=== PATIENT | male | born 1985 | race Caucasian/White ===

== ENCOUNTER 2016-11-01 18:58 | Emergency (ER) | payer MEDICAID ==
[2016-11-01] MEDS ORDERED: LORazepam 2 MG/ML INJ IVP ONE ×3 (19:34→20:42)
[2016-11-01] MEDS ORDERED: NS 1,000 ML IV ONE ×2 (19:34→20:42)
[2016-11-01] MEDS ORDERED: LORazepam 2 MG/ML INJ ONE ×2 (19:38→20:43)
--- NOTE | 2016-11-01 19:47 | EDPHY ---
HPI/HX/ROS/PE/MDM Narrative: CHIEF COMPLAINT: "I'm having a panic attack related to drugs" HISTORY OF PRESENT ILLNESS: The patient is a 31 y/o male arriving today complaining of anxiety related to drug intake yesterday around 14:00 in [place]. He reports using crystal methamphetamine, CBD, and possible LSD, in addition to wearing a nicotine patch. He denies marijuana, cocaine, or opiate use. He began feeling anxious on the bus ride home and states "I think all the chemicals are adding up in my body." He describes his symptoms as feeling like "someone is attacking my every nerve and trying to move it the wrong way and every time I move there is opposition." He states that he "has a PTSD kind of thing going on" and that his breathing "rhythm is off." He is HIV positive and has history of depression, anxiety, and panic attacks. He denies suicidal ideation. He denies chest pain, dyspnea, recent illness or trauma, dizziness, or syncope as well as immediate family history of cardiac disease at a young age. No fever, chills, vomiting, diarrhea, urinary complaints, headache. REVIEW OF SYSTEMS: Aside from elements discussed in the HPI, a comprehensive 10-point review of systems was reviewed and is negative. PAST MEDICAL HISTORY: HIV positive for 13 years (Triumeq, CD4 count 900, viral load undetectable). Depression, anxiety. SOCIAL HISTORY: History of amphetamine use. Followed at [facility] for HIV. Sees mental health professional in [place]. VITAL SIGNS: Reviewed by me GENERAL: Well-developed, well-nourished, anxious. HEENT: Atraumatic. Eyes: Pupils 6 mm and reactive bilaterally. No icterus, no injection. Mouth: moist mucous membranes. No erythema or lesions. Neck: supple with no adenopathy. LUNGS: Clear to auscultation bilaterally, no wheezes, rhonchi or rales. CARDIAC: Tachycardic. Regular rhythm, no rubs, murmurs or gallops. ABDOMEN: Soft, nontender, nondistended, bowel sounds normal. BACK: No CVA tenderness. EXTREMITIES: No trauma. No edema. Range of motion is normal throughout. NEURO: Alert and oriented, grossly nonfocal. SKIN: Warm and dry, no rash. PSYCHIATRIC: Normal mentation, anxious. Portions of this note were transcribed by a biomedical engineering technician. I personally performed a history, physical exam, medical decision making, and confirmed accuracy of information the transcribed note. ED Course: The patient is a 31 y/o male with history of HIV and illicit drug abuse. He presents with a self described panic attack 24 hours after consuming crystal methamphetamine, CBD, and possible LSD. He is neurovascularly intact. Plan for symptom treatment. IV established. Administered 2L IV NS and a total of 3mg IV Ativan for symptoms with improvement. Reassessed the patient. Tachycardia has resolved and he feels improved enough to go home. The patient will be discharged with Ativan pre-pack. Recommendation to discontinue illicit drug use and follow up with his mental health professional this week. Return precautions discussed. The patient is comfortable with this plan. MDM: Differential diagnoses for the patient's symptom complex was considered including but not limited to sinus tachycardia, anxiety, panic attack, SVT, dehydration. - Data Points Medications Given: Discontinued Medications Sodium Chloride (Ns) 1,000 mls @ 0 mls/hr IV ONCE ONE PRN Reason: Wide Open Stop: 11/01/16 19:35 Last Admin: 11/01/16 19:53 Dose: 1,000 mls Sodium Chloride (Ns) 1,000 mls @ 0 mls/hr IV ONCE ONE PRN Reason: Wide Open Stop: 11/01/16 20:43 Last Admin: 11/01/16 21:02 Dose: 1,000 mls Lorazepam (Ativan Injection) 1 mg IVP EDNOW ONE Stop: 11/01/16 19:35 Last Admin: 11/01/16 19:54 Dose: 1 mg Lorazepam (Ativan Injection) 1 mg IVP EDNOW ONE Stop: 11/01/16 19:54 Last Admin: 11/01/16 19:53 Dose: Not Given Lorazepam (Ativan Injection) 1 mg IVP EDNOW ONE Stop: 11/01/16 20:43 Last Admin: 11/01/16 21:03 Dose: 1 mg Lorazepam (Ativan 1 Mg Prepack#4) 1 btl TAKEHOME EDNOW ONE Stop: 11/01/16 21:14 Last Admin: 11/01/16 21:35 Dose: 1 btl General Time Seen by Provider: 11/01/16 19:00 Initial Vital Signs: Initial Vital Signs Temperature (C) 37 C 11/01/16 19:08 Heart Rate 132 H 11/01/16 19:08 Respiratory Rate 20 11/01/16 19:08 Blood Pressure 133/82 H 11/01/16 19:08 O2 Sat (%) 96 11/01/16 19:08 O2 Delivery Mode Room Air Allergies/Adverse Reactions: lurasidone HCl [From Latuda] Allergy (Verified 11/01/16 19:08) haloperidol [From Haldol] Adverse Reaction (Verified 11/01/16 19:08) haloperidol lactate [From Haldol] Adverse Reaction (Verified 11/01/16 19:08) olanzapine [From Zyprexa] Adverse Reaction (Verified 11/01/16 19:08) promethazine HCl [From Phenergan] Adverse Reaction (Verified 11/01/16 19:08) ziprasidone HCl [From Geodon] Adverse Reaction (Verified 11/01/16 19:08) ziprasidone mesylate [From Geodon] Adverse Reaction (Verified 11/01/16 19:08) Home Medications: Medication Instructions Recorded Invega 01/24/16 Strattera 01/24/16 Triumeq Tablet 01/24/16 Lexapro 03/29/16 Departure - Departure Disposition: Home, Routine, Self-Care Clinical Impression: Methamphetamine abuse, Anxiety attack, Anxiety Condition: Good Instructions: Lorazepam (By mouth), Methamphetamine (By mouth), Methamphetamine Abuse (ED), Anxiety (ED) Additional Instructions: Do not use methamphetamines in the future. You have been given a prepack of Ativan. Please use this only as needed for severe anxiety. Dose is 1 mg every 12 hours as needed. Follow up with your primary psychiatrist at [facility] as soon as possible. Referrals: Eliza Dotson NP [Primary Care Provider] - As per Instructions [facility],. [Clinic] - As per Instructions Report Scribed for: Katelyn Whitney Report Scribed by: Flaquita Tomlin Date of Report: 11/01/16 Time of Report: 21:21
[2016-11-01] MEDS ORDERED: LORAZEPAM 1 MG PREPACK#4 BTL TAKEHOME ONE ×2 (21:13→21:34)
[2016-11-01 22:02] VITALS: BP 118/85; PULSE 90; RESP 16; TEMP 97.5; O2SAT 98
== END 2016-11-01 22:02 | disposition home or self-care (01) ==
DX: F41.9 Anxiety disorder, unspecified (principal); F15.10 Other stimulant abuse, uncomplicated; B20 Human immunodeficiency virus [HIV] disease
CPT/HCPCS: 96374; J2060

== ENCOUNTER 2016-12-02 13:51 | Emergency (ER) | payer MEDICAID ==
[2016-12-02] MEDS ORDERED: LORazepam 2 MG/ML INJ IVP ONE (14:06)
[2016-12-02 14:15] VITALS: RESP 18
--- NOTE | 2016-12-02 14:22 | EDPHY ---
H & P Stated Complaint: anxiety Time Seen by Provider: 12/02/16 13:51 HPI/ROS: CHIEF COMPLAINT: Anxiety HISTORY OF PRESENT ILLNESS: 31-year-old male presents emergency department by ambulance reporting an anxiety attack. Patient has a history of schizoaffective disorder, PTSD, HIV positive and polysubstance abuse. Patient reports he has not used any drugs for a month. He states he did have a glass of wine this morning. Patient saw his psychiatrist yesterday and started new medication fluphenazine. Patient reports having PTSD flashbacks this morning causing him to feel anxious. He called 911. Patient denies chest pain or shortness breath. He reports he drink a glass of wine trying to calm him down. He reports this anxiety attack is no different than usual. Patient received 2.5 mg Versed in the ambulance. REVIEW OF SYSTEMS: A comprehensive 10 point review of systems is otherwise negative aside from elements mentioned in the history of present illness. Source: Patient, Family, EMS Exam Limitations: No limitations - Personal History Current Tetanus/Diphtheria Vaccine: Unsure Tetanus Vaccine Date: < 10 YEARS - Medical/Surgical History Hx Asthma: No Hx Chronic Respiratory Disease: No Hx Diabetes: No Hx Cardiac Disease: No Hx Renal Disease: No Hx Cirrhosis: No Hx Alcoholism: No Hx HIV/AIDS: Yes Hx Splenectomy or Spleen Trauma: No Other PMH: pmh- depression, bipolar, anxiety, HIV+, SCHIZOAFFECTIVE. psh- wisdom, HPV removed from anus. - Social History Smoking Status: Current every day smoker Alcohol Use: Occasionally - Physical Exam Exam: Physical Exam Gen: Alert and Oriented, NAD HEENT: PERRL, moist mucous membranes NECK: no meningismus CV: Tachycardic rate and regular rhythm PULM: CTAB, no wheezes ABDOMEN: soft, non tender to palpation, BS present BACK: No CVA tenderness NEURO: Neurologically grossly intact EXTREMITIES: normal appearing SKIN: no rash or break in skin on exposed skin PSYCH: Flat affect, denies suicidal ideation, auditory and visual hallucinations. Constitutional: Initial Vital Signs Temperature (C) 36.9 C 12/02/16 14:12 Heart Rate 106 H 12/02/16 14:12 Respiratory Rate 18 12/02/16 14:12 Blood Pressure 115/87 H 12/02/16 14:12 O2 Sat (%) 96 12/02/16 14:12 O2 Delivery Mode Room Air Allergies/Adverse Reactions: lurasidone HCl [From Latuda] Allergy (Verified 11/01/16 19:08) haloperidol [From Haldol] Adverse Reaction (Verified 11/01/16 19:08) haloperidol lactate [From Haldol] Adverse Reaction (Verified 11/01/16 19:08) olanzapine [From Zyprexa] Adverse Reaction (Verified 11/01/16 19:08) promethazine HCl [From Phenergan] Adverse Reaction (Verified 11/01/16 19:08) ziprasidone HCl [From Geodon] Adverse Reaction (Verified 11/01/16 19:08) ziprasidone mesylate [From Geodon] Adverse Reaction (Verified 11/01/16 19:08) Home Medications: Medication Instructions Recorded Invega 01/24/16 Strattera 01/24/16 Triumeq Tablet 01/24/16 Lexapro 03/29/16 Medical Decision Making ED Course/Re-evaluation: 31-year-old male presents to the emergency department by ambulance for an anxiety attack. Patient's partner went to work this morning and noticed he was more anxious than usual. In route the patient received 2.5mg of Versed which helped his symptoms. On arrival to the emergency department patient reports he is feeling much better, he denies drug use, reports he drink 1 glass of wine prior to calling 911 to help with anxiety, patient reports this made it worse. Patient's partner came to the emergency department from work and the patient immediately relaxed even more. He will take the patient home. The patient and partner are comfortable with this plan. He has an appointment with his psychiatrist in 2 weeks. I have recommended alcohol cessation and taking his medications as prescribed. Patient is given strict return precautions for any new symptoms, worsening symptoms or concerns. Departure - Departure Disposition: Home, Routine, Self-Care Clinical Impression: Anxiety attack Condition: Good Instructions: Anxiety (ED) Additional Instructions: 1. Please follow-up with your psychiatrist as scheduled. 2. [facility] does operate a 24/ psychiatric crisis unit located at [facility]. The telephone number for the 24 hour crisis center is [phone]. 3. Please return to the ED if you are feeling suicidal, having thoughts of harming yourself/others or should you feel unsafe or have worsening symptoms. Referrals: Patient,NotPresent [Primary Care Provider] - As per Instructions
[2016-12-02 15:05] VITALS: BP 138/90; PULSE 102; TEMP 97.9; O2SAT 98
== END 2016-12-02 15:05 | disposition home or self-care (01) ==
LOC: EDUNIT#
DX: F41.9 Anxiety disorder, unspecified (principal); B20 Human immunodeficiency virus [HIV] disease; F17.200 Nicotine dependence, unspecified, uncomplicated
CPT/HCPCS: 96374; J1200

== ENCOUNTER 2016-12-03 01:15 | Emergency (ER) | payer MEDICAID ==
[2016-12-03 01:24] VITALS: TEMP 98.4
--- NOTE | 2016-12-03 01:38 | EDPHY ---
H & P Stated Complaint: tardive dyskinesia from meds. no recent benadryl HPI/ROS: HPI CHIEF COMPLAINT: Agitation, Breath-Holding HISTORY OF PRESENT ILLNESS: This patient very pleasant 31-year-old male significant past medical history for schizoaffective disorder, PTSD, HIV, polysubstance abuse, anxiety who was seen here earlier in the emergency room for acute anxiety by ambulance and in route by EMS he was received 2.5 mg of IM Versed. According to the note he arrived any was, cooperative was discharged with this partner at bedside. He presents back to the emergency room this evening with his partner for agitation and breath holding. Patient is stating that he needs Ativan and so was his partner at bedside. Upon my evaluation the patient appears slightly agitated at times he does these breath-holding spells and then forcefully speaks. Apartment bedside says that he gets like this however Ativan greatly improved his symptoms. Past Medical History: Schizoaffective disorder, PTSD, HIV, polysubstance abuse , anxiety Past Surgical History: No recent surgical history Social History: Occasional alcohol use, denies illicit drugs or tobacco Family History: Non contributory. ROS REVIEW OF SYSTEMS: A comprehensive 10 point review of systems is otherwise negative aside from elements mentioned in the history of present illness. Exam Constitutional Agitated, anxious, triage nursing summary reviewed, vital signs reviewed, awake/alert. (tachycardia) Eyes normal conjunctivae and sclera, EOMI, PERRLA. HENT normal inspection, atraumatic, moist mucus membranes, no epistaxis, neck supple/ no meningismus, no raccoon eyes. Respiratory clear to auscultation bilaterally, normal breath sounds, no respiratory distress, no wheezing. Cardiovascular rate normal, regular rhythm, no murmur, no edema, distal pulses normal. Gastrointestinal soft, non-tender, no rebound, no guarding, normal bowel sounds, no distension, no pulsatile mass. Genitourinary no CVA tenderness. Musculoskeletal no midline vertebral tenderness, full range of motion, no calf swelling, no tenderness of extremities, no meningismus, good pulses, neurovascularly intact. Skin pink, warm, & dry, no rash, skin atraumatic. Neurologic awake, alert and oriented x 3, AAOx3, moves all 4 extremities equally, motor intact, sensory intact, CN II-XII intact, normal cerebellar, normal vision, normal speech. Psychiatric anxious, agitated Heme/Lymph/Immune no lymphadenopathy. Differential Diagnosis: Includes but is not limited to in a particular order acute anxiety, panic attack, acute agitation, medication side effect. Medical Decision Making: Plan for this patient is tachycardic appears agitated and anxious and IV will be established received IV Ativan 1 mg 25 mg IV Benadryl IV fluid bolus check basic blood work and drug screen. Re-evaluate. Re-evaluation: 0411: Re-evaluation at this time patient is resting comfortably. Feels much better after IV Ativan and IV Benadryl. He is requesting discharge. He is, cooperative. Not agitated. Anxiety resolved. Recommend close follow-up with his primary care doctor or psychiatrist. Return emergency room if there is worsening symptoms questions or concerns. Source: Patient - Personal History Current Tetanus/Diphtheria Vaccine: Yes Current Tetanus Diphtheria and Acellular Pertussis (TDAP): Yes Tetanus Vaccine Date: < 10 YEARS - Medical/Surgical History Hx Asthma: No Hx Chronic Respiratory Disease: No Hx Diabetes: No Hx Cardiac Disease: No Hx Renal Disease: No Hx Cirrhosis: No Hx Alcoholism: No Hx HIV/AIDS: Yes Hx Splenectomy or Spleen Trauma: No Other PMH: pmh- depression, bipolar, anxiety, HIV+, SCHIZOAFFECTIVE. psh- wisdom, HPV removed from anus. - Social History Smoking Status: Current every day smoker Constitutional: Initial Vital Signs Temperature (C) 36.9 C 12/03/16 01:20 Heart Rate 112 H 12/03/16 01:20 Respiratory Rate 18 12/03/16 01:20 Blood Pressure 133/93 H 12/03/16 01:20 O2 Sat (%) 94 12/03/16 01:20 O2 Delivery Mode Room Air Allergies/Adverse Reactions: lurasidone HCl [From Latuda] Allergy (Verified 12/03/16 01:22) haloperidol [From Haldol] Adverse Reaction (Verified 12/03/16 01:22) haloperidol lactate [From Haldol] Adverse Reaction (Verified 12/03/16 01:22) olanzapine [From Zyprexa] Adverse Reaction (Verified 12/03/16 01:22) promethazine HCl [From Phenergan] Adverse Reaction (Verified 12/03/16 01:22) ziprasidone HCl [From Geodon] Adverse Reaction (Verified 12/03/16 01:22) ziprasidone mesylate [From Geodon] Adverse Reaction (Verified 12/03/16 01:22) Home Medications: Medication Instructions Recorded Invega 01/24/16 Strattera 01/24/16 Triumeq Tablet 01/24/16 Lexapro 03/29/16 fluPHENAZine HCL [FLUPHENAZINE HCL] 5 mg PO 12/03/16 Medical Decision Making - Data Points Laboratory Results: Laboratory Results 12/03/16 02:30 12/03/16 02:30 12/03/16 12/03/16 02:30 02:30 WBC 8.02 10^3/uL 10^3/uL (3.80-9.50) RBC 4.40 10^6/uL 10^6/uL (4.40-6.38) Hgb 13.9 g/dL g/dL (13.7-17.5) Hct 39.0 % L % (40.0-51.0) MCV 88.6 fL fL (81.5-99.8) MCH 31.6 pg pg (27.9-34.1) MCHC 35.6 g/dL g/dL (32.4-36.7) RDW 12.3 % % (11.5-15.2) Plt Count 300 10^3/uL 10^3/uL (150-400) MPV 9.2 fL fL (8.7-11.7) Neut % (Auto) 56.4 % % (39.3-74.2) Lymph % (Auto) 32.0 % % (15.0-45.0) [place] % (Auto) 10.2 % % (4.5-13.0) Eos % (Auto) 0.6 % % (0.6-7.6) Baso % (Auto) 0.4 % % (0.3-1.7) Nucleat RBC Rel Count 0.0 % % (0.0-0.2) Absolute Neuts (auto) 4.52 10^3/uL 10^3/uL (1.70-6.50) Absolute Lymphs (auto) 2.57 10^3/uL 10^3/uL (1.00-3.00) Absolute Monos (auto) 0.82 10^3/uL H 10^3/uL (0.30-0.80) Absolute Eos (auto) 0.05 10^3/uL 10^3/uL (0.03-0.40) Absolute Basos (auto) 0.03 10^3/uL 10^3/uL (0.02-0.10) Absolute Nucleated RBC 0.00 10^3/uL 10^3/uL (0-0.01) Immature Gran % 0.4 % % (0.0-1.1) Immature Gran # 0.03 10^3/uL 10^3/uL (0.00-0.10) Sodium 139 mEq/L mEq/L (134-144) Potassium 4.5 mEq/L mEq/L (3.5-5.2) Chloride 105 mEq/L mEq/L (97-110) Carbon Dioxide 20 mEq/l L mEq/l (22-31) Anion Gap 14 mEq/L mEq/L (8-16) BUN 12 mg/dL mg/dL (7-23) Creatinine 1.0 mg/dL mg/dL (0.7-1.3) Estimated GFR > 60 Glucose 108 mg/dL H mg/dL (70-100) Calcium 9.8 mg/dL mg/dL (8.5-10.4) Departure - Departure Disposition: Home, Routine, Self-Care Clinical Impression: Anxiety Condition: Good Instructions: Anxiety (ED) Referrals: Eliza Dotson NP [Primary Care Provider] - As per Instructions
[2016-12-03] MEDS ORDERED: NS 1,000 ML IV ONE (01:49)
[2016-12-03] MEDS ORDERED: LORazepam 2 MG/ML INJ IVP ONE (01:49)
[2016-12-03] MEDS ORDERED: LORazepam 2 MG/ML INJ ONE (02:20)
[2016-12-03 02:42] LABS: % IMMATURE GRANULYOCYTES 0.4 % (0.0-1.1); ABSOLUTE IMMATURE GRANULOCYTES 0.03 10^3/uL (0.00-0.10); ADD DIFF? NO; ADD MORPH? NO; ADD SCAN? NO; ATYPICAL LYMPHOCYTE FLAG 0 (0-99); FRAGMENT RBC FLAG 0 (0-99); HEMOGLOBIN 13.9 g/dL (13.7-17.5); LEFT SHIFT FLG 0 (0-99); LIPEMIA HEMOLYSIS FLAG 90 (0-99); MEAN CELL HEMOGLOBIN 31.6 pg (27.9-34.1); MEAN CELL HEMOGLOBIN CONCENTR. 35.6 g/dL (32.4-36.7); MEAN CELL VOLUME 88.6 fL (81.5-99.8); MEAN PLATELET VOLUME 9.2 fL (8.7-11.7); PLATELET CLUMPS FLAG 0 (0-99); PLATELET COUNT 300 10^3/uL (150-400); RED CELL DISTRIBUTION WIDTH 12.3 % (11.5-15.2)
[2016-12-03 02:54] LABS: ANION GAP 14 mEq/L (8-16); CALCIUM 9.8 mg/dL (8.5-10.4); CARBON DIOXIDE 20 mEq/l (22-31); CHLORIDE 105 mEq/L (97-110); GLOMERULAR FILTRATION RATE > 60; GLUCOSE 108 mg/dL (70-100); POTASSIUM 4.5 mEq/L (3.5-5.2); SODIUM 139 mEq/L (134-144)
[2016-12-03 02:59] VITALS: RESP 16
[2016-12-03 04:28] VITALS: BP 115/73; PULSE 84; O2SAT 95
== END 2016-12-03 04:29 | disposition home or self-care (01) ==
DX: F41.9 Anxiety disorder, unspecified (principal); B20 Human immunodeficiency virus [HIV] disease; F17.200 Nicotine dependence, unspecified, uncomplicated
CPT/HCPCS: 96374; J1200; J2060

== ENCOUNTER 2016-12-27 22:45 | Inpatient (IN) | payer MEDICAID ==
--- NOTE | 2016-12-27 23:03 | EDPHY ---
H & P Stated Complaint: took 30 clonodine Source: Patient - Personal History Tetanus Vaccine Date: < 10 YEARS - Medical/Surgical History Hx Asthma: No Hx Chronic Respiratory Disease: No Hx Diabetes: No Hx Cardiac Disease: No Hx Renal Disease: No Hx Cirrhosis: No Hx Alcoholism: No Hx HIV/AIDS: Yes Hx Splenectomy or Spleen Trauma: No Other PMH: pmh- depression, bipolar, anxiety, HIV+, SCHIZOAFFECTIVE. psh- wisdom, HPV removed from anus. - Social History Smoking Status: Current every day smoker HPI/ROS: HPI CHIEF COMPLAINT: Overdose HISTORY OF PRESENT ILLNESS: Patient 31-year-old male, significant past medical history for schizoaffective disorder, PTSD, HIV, polysubstance abuse, anxiety, presents emergency room by private vehicle with his significant other for an overdose. Patient tells me around 830 this evening he took 25 tabs of 0.1 mg clonidine as well as Seven 25 mg Benadryl tabs. The purpose of this was to hurt himself. Patient states he did this to hurt himself. Past Medical History: Schizoaffective disorder, PTSD, anxiety, HIV, polysubstance abuse Past Surgical History: No recent surgical history Social History: Denies daily use of alcohol drugs or tobacco Family History: Noncontributory ROS REVIEW OF SYSTEMS: A comprehensive 10 point review of systems is otherwise negative aside from elements mentioned in the history of present illness. Exam Constitutional flat affect, sleepy, triage nursing summary reviewed, vital signs reviewed, awake/alert. Eyes normal conjunctivae and sclera, EOMI, PERRLA. HENT normal inspection, atraumatic, moist mucus membranes, no epistaxis, neck supple/ no meningismus, no raccoon eyes. Respiratory clear to auscultation bilaterally, normal breath sounds, no respiratory distress, no wheezing. Cardiovascular rate normal, regular rhythm, no murmur, no edema, distal pulses normal. Gastrointestinal soft, non-tender, no rebound, no guarding, normal bowel sounds, no distension, no pulsatile mass. Genitourinary no CVA tenderness. Musculoskeletal no midline vertebral tenderness, full range of motion, no calf swelling, no tenderness of extremities, no meningismus, good pulses, neurovascularly intact. Skin pink, warm, & dry, no rash, skin atraumatic. Neurologic flat affect, sleepy, , alert and oriented x 3, AAOx3, moves all 4 extremities equally, motor intact, sensory intact, CN II-XII intact, normal cerebellar, normal vision, normal speech. Psychiatric flat affect Heme/Lymph/Immune no lymphadenopathy. 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 Heart rate very closely. Will also need to watch out for anticholinergic syndrome given Benadryl overdose. Will check blood work including labs. Will obtain EKG. Re-evaluation: EKG interpretation by me on record in [employer] system. Impression sinus rhythm rate of 50. No prolonged intervals. No acute ischemic changes. No signs of cardiac arrhythmia. Unremarkable EKG. 0350AM: Re-evaluation this time patient is resting comfortably. No complaints. Vital signs stable. 0501: Re-evaluation this time patient is medically cleared. Patient is up ambulatory to the bathroom without any trouble. Speaking coherently in full sentences. He is not lethargic. He is not hypotensive he does have a heart rate the runs 40s to 50s. But asymptomatic. Medically cleared for mental health evaluation. 0700AM: Patient signed over to Dr. Frias at 7:00 a.m. shift change. Patient pending mental evaluation. Patient medically clear. 2307 12/28/16: Patient accepted by Dr. Bosch at [address] [place] [address] psychiatric care. Patient will be appropriately transferred. EMTALA Filled out. (Karan Guallpa) Constitutional: Initial Vital Signs Temperature (C) 36.8 C 12/27/16 22:50 Heart Rate 58 L 12/27/16 22:50 Respiratory Rate 20 12/27/16 22:50 Blood Pressure 112/70 12/27/16 22:50 O2 Sat (%) 98 12/27/16 22:50 O2 Delivery Mode Room Air Allergies/Adverse Reactions: haloperidol [From Haldol] Allergy (Verified 12/28/16 09:11) haloperidol lactate [From Haldol] Allergy (Verified 12/28/16 09:11) lurasidone HCl [From Latuda] Allergy (Verified 12/27/16 22:48) olanzapine [From Zyprexa] Allergy (Verified 12/28/16 09:11) promethazine HCl [From Phenergan] Allergy (Verified 12/28/16 09:11) ziprasidone HCl [From Geodon] Allergy (Verified 12/28/16 09:11) ziprasidone mesylate [From Geodon] Allergy (Verified 12/28/16 09:11) Home Medications: Medication Instructions Recorded Abacavir/Dolutegravir/Lamivudi 1 each PO DAILY 12/29/16 [Triumeq Tablet] Escitalopram Oxalate [Lexapro] 15 mg PO DAILY 12/29/16 Topiramate [Topamax] 25 mg PO BID 12/29/16 clonIDINE [Catapres (*)] 0.1 mg PO HS 12/29/16 Medical Decision Making ED Course/Re-evaluation: 1500 care assumed by me from Dr. Frias pending placement at ATU. Patient complaining of increasing anxiety, Ativan 1 mg p.o. ordered. Patient began complaining of some increasing anxiety, Ativan p.o. ordered [address] Guallpa pending placement at ATV. (Oswald Zaldivar ) 0700: I assumed care of the patient at shift change. Patient is awaiting mental health evaluation. 0800: I reevaluated the patient. He is feeling better and would like his IV out. 1230: Patient seen by mental health and felt appropriate for ATU. Signed over to Dr. Zaldivar at shift change. (Desirae Frias) - Data Points Laboratory Results: Laboratory Results 12/27/16 23:07 12/27/16 23:07 Medications Given: Discontinued Medications Sodium Chloride (Ns) 1,000 mls @ 0 mls/hr IV ONCE ONE PRN Reason: Wide Open Stop: 12/27/16 23:06 Last Admin: 12/27/16 23:05 Dose: 1,000 mls Sodium Chloride (Ns) 1,000 mls @ 0 mls/hr IV ONCE ONE PRN Reason: Wide Open Stop: 12/28/16 00:40 Last Admin: 12/28/16 00:55 Dose: 1,000 mls Lorazepam (Ativan) 1 mg PO EDNOW ONE Stop: 12/28/16 16:24 Last Admin: 12/28/16 16:29 Dose: 1 mg Lorazepam (Ativan) 1 mg PO EDNOW ONE Stop: 12/28/16 21:43 Last Admin: 12/28/16 21:45 Dose: 1 mg Lorazepam (Ativan) 1 mg PO EDNOW ONE Stop: 12/28/16 21:48 Last Admin: 12/28/16 21:48 Dose: 1 mg Miscellaneous Medication (Abacavir/Dolutegravir/Lamivudi [Triumeq Tablet]) 1 each PO DAILY AMRIT Stop: 06/27/17 11:29 Last Admin: 12/29/16 12:39 Dose: Not Given Nicotine (Nicoderm Cq) 21 mg TD EDNOW ONE Stop: 12/28/16 08:37 Last Admin: 12/28/16 09:13 Dose: 21 mg Pneumococcal Polyvalent Vaccine (Pneumovax 23) 0.5 ml IM .ONCE ONE Stop: 12/29/16 11:09 Last Admin: 12/29/16 12:00 Dose: 0.5 ml Departure - Departure Disposition: [facility] IP Clinical Impression: Clonidine overdose, Suicidal ideation Condition: Fair
[2016-12-27] MEDS ORDERED: NS 1,000 ML IV ONE (23:05)
--- NOTE | 2016-12-27 23:15 | CPEKG ---
Heart Rate: 50 RR Interval: 1200 P-R Interval: 168 QRSD Interval: 74 QT Interval: 440 QTC Interval: 402 P [place]: 49 QRS [place]: 61 T Wave [place]: 59 EKG Severity - NORMAL ECG - EKG Impression: SINUS RHYTHM Electronically Signed By: Karan Guallpa 28-Dec-2016 06:48:04
[2016-12-27 23:16] LABS: % IMMATURE GRANULYOCYTES 0.3 % (0.0-1.1); ABSOLUTE IMMATURE GRANULOCYTES 0.03 10^3/uL (0.00-0.10); ADD DIFF? NO; ADD MORPH? NO; ADD SCAN? NO; ATYPICAL LYMPHOCYTE FLAG 20 (0-99); FRAGMENT RBC FLAG 0 (0-99); HEMATOCRIT 38.4 % (40.0-51.0); HEMOGLOBIN 13.6 g/dL (13.7-17.5); LEFT SHIFT FLG 0 (0-99); LIPEMIA HEMOLYSIS FLAG 90 (0-99); MEAN CELL HEMOGLOBIN CONCENTR. 35.4 g/dL (32.4-36.7); MEAN CELL VOLUME 90.4 fL (81.5-99.8); MEAN PLATELET VOLUME 9.3 fL (8.7-11.7); PLATELET CLUMPS FLAG 40 (0-99); PLATELET COUNT 327 10^3/uL (150-400); RED BLOOD CELL COUNT 4.25 10^6/uL (4.40-6.38); RED CELL DISTRIBUTION WIDTH 12.6 % (11.5-15.2)
[2016-12-27 23:37] LABS: ALANINE AMINOTRANSFERASE 49 IU/L (21-72); ALBUMIN 4.3 g/dL (3.5-5.0); ALKALINE PHOSPHATASE 65 IU/L (38-126); ANION GAP 11 mEq/L (8-16); ASPARTATE AMINOTRANSFERASE 26 IU/L (17-59); BILIRUBIN,TOTAL 0.6 mg/dL (0.1-1.4); BILIRUBIN-CONJUGATED 0.3 mg/dL (0.0-0.5); BILIRUBIN-UNCONJUGATED 0.3 mg/dL (0.0-1.1); CARBON DIOXIDE 20 mEq/l (22-31); CHLORIDE 103 mEq/L (97-110); CREATININE 1.6 mg/dL (0.7-1.3); ETHANOL SERUM < 10 mg/dL (0-10); GLOMERULAR FILTRATION RATE 50; GLUCOSE 105 mg/dL (70-100); POTASSIUM 4.6 mEq/L (3.5-5.2); SALICYLATE < 1.0 mg/dL (2.0-20.0); SODIUM 134 mEq/L (134-144)
[2016-12-28] MEDS ORDERED: NS 1,000 ML IV ONE (00:39)
[2016-12-28] MEDS ORDERED: NICOTINE 21 MG/24 HR PATCH TD ONE ×2 (08:36→09:11)
[2016-12-28] MEDS ORDERED: LORazepam 1 MG TAB PO ONE ×3 (16:23→21:47)
[2016-12-29] MEDS ORDERED: ACETAMINOPHEN 325 MG TAB PO PRN (00:35)
[2016-12-29] MEDS ORDERED: MAGNESIUM HYDROXIDE 30 ML UDCUP PO PRN (00:35)
[2016-12-29] MEDS ORDERED: OLANZapine DISINTEGR 5 MG TAB PO PRN (00:36)
[2016-12-29] MEDS: LORazepam 0.5 MG TAB PO PRN ×5 (00:46→18:55)
[2016-12-29] MEDS ORDERED: PNEUMOCOCCAL 0.5ML VACCINE VIAL IM ONE (11:08)
[2016-12-29] MEDS ORDERED: LAMIVUDI PO SCH (11:30)
[2016-12-29] MEDS ORDERED: DOLUTEGRAVIR PO SCH (11:30)
[2016-12-29] MEDS ORDERED: ABACAVIR PO SCH (11:30)
[2016-12-29] MEDS: ESCITALOPRAM OXALATE 10 MG TAB PO SCH (12:15)
[2016-12-29] MEDS: TOPIRAMATE 25 MG TAB PO SCH ×2 (12:16→20:03)
[2016-12-29] MEDS: DOLUTEGRAVIR PO SCH (12:17)
[2016-12-29] MEDS: LAMIVUDI PO SCH (12:17)
[2016-12-29] MEDS: ABACAVIR PO SCH (12:17)
[2016-12-29] MEDS ORDERED: POLYETHYLENE GLYCOL 3350 17 GM PKT PO PRN (13:50)
[2016-12-29] MEDS: NICOTINE POLACRILEX 2 MG GUM B PRN (14:41)
--- NOTE | 2016-12-29 15:19 | BAPA ---
[f rep st] ADMISSION PSYCHIATRIC ASSESSMENT DATE OF SERVICE: 12/29/2016 CHIEF COMPLAINT: "I was at the end of my rope and became suicidal." HISTORY OF PRESENT ILLNESS: Patient is a 31-year-old male with history of polysubstance dependence and schizoaffective disorder. He presented to the emergency department with his partner after his partner came home and he disclosed to him that he took an overdose of his clonidine. He was evaluated and cleared in the emergency department and though he stated he took 25, 0.1 mg clonidine, and 7 Benadryl, he had no evidence of cardiovascular or autonomic dysfunction. He was then evaluated by [facility] and reported increasing thoughts of suicide recently. He relates this in large part to conflict with his partner whom he states is "really controlling and obsessive." He states that his partner has OCD and is very rigid. He also states that there is little intimacy in the relationship or reciprocation and that he feels used to emotionally and sexually by the partner. He reports declining mood recently with increased anxiety and stress and increase of what he describes as "visual hallucinations." He states that when he becomes anxious he begins to see patterns superimposed on his visual field and that he will typically have panic attacks when this occurs. The patient reports feeling better today after having a good night's sleep, though he has numerous other emotional and physical complaints. Primarily, he states that his energy and motivation are very poor and that he believes he should get amphetamines to help with this. He admits to taking an MDA and amphetamines he obtains on the street and that he feels better when he does this. He also requests scheduled and p.r.n. benzodiazepines as he states that these also help him feel better. He acknowledges a history of substance abuse, but states that he believes if he was prescribed these medicines he would not abuse substances. He reports feeling supported now by his partner as he has shown interest in his acute crisis and he feels better about this. PAST PSYCHIATRIC HISTORY: Significant for more than 20 previous psychiatric hospitalizations with the last 1 being more than 2 years ago. He is currently followed at [facility] and sees Dr. Lynn. He does not currently have a therapist, but has a behavioral health case manager. He does not participate in any other therapeutic programs at this time. The patient denies any previous suicide attempts or self-harming. ALLERGIES: Listed to multiple neuroleptics, though when investigated these seem to be more adverse reactions such as akathisia, dystonia or weight gain. CURRENT MEDICATIONS: Invega Sustenna 156 mg every month, clonidine 0.1 mg q.h.s., Lexapro 15 mg daily and Topamax 25 mg twice daily. PAST MEDICAL HISTORY: Significant for HIV. He sees Dr. Dotson at the [facility]. He also reports chronic constipation. SOCIAL HISTORY: The patient lives with his partner in an apartment in [place]. He states that is a nice apartment that they have obtained through his stepfather, who works with a [employer]. He receives Social Security disability income due to mental illness. He works 2 to 3 days a week at [employer] and states he likes this job and that the manager clinical applications is supportive. He was born and raised in [place]. He is a high school graduate with some college. His mother and stepfather are his primary supports outside of his partner. He states he has been with his partner for 4 years. He enjoys walking, yoga, crocheting, painting and drawing. SUBSTANCE ABUSE HISTORY: Patient has a history of multiple substance use including daily nicotine use through smoking, methamphetamine use, MDMA and benzodiazepine abuse as documented by EPS report. FAMILY HISTORY: Significant for maternal grandmother and brother who are all diagnosed with bipolar disorder. Patient's father has alcohol and drug problems. ADMISSION LABORATORY: CBC shows a white count up at 10.39 and an H and H down at 13.6 and 38.4. Serum chemistries show creatinine slightly up at 1.6, otherwise normal. Liver function is normal. Urine drug screen shows no substances of abuse. Alcohol is less than detectable. MENTAL STATUS EXAMINATION: Reveals a neatly-groomed, healthy-appearing, male. He appears somewhat younger than his stated age. He interacts well with the examiner, displaying good eye contact and a calm and pleasant demeanor. His affect is euthymic, stable and appropriate. His mood is described as "pretty depressed." His thought process is linear and goal directed. His thought content reveals no evidence of psychosis. He is alert and oriented to person, place, time, and situation, and his sensorium is clear. He continues to endorse some passive thoughts of suicide, though states that this is improved over yesterday and that he has no active desire to harm himself. His intellect appears to be average as evidenced by his educational and occupational history, his fund of knowledge, and vocabulary. His insight and judgment appear to be fair. IMPRESSION: Schizoaffective disorder, depressed type, chronic with acute exacerbation. MDMA use disorder, severity unknown. Possible other substance abuse. Conflict with partner, marginal supports. Chronic illness, human immunodeficiency virus. The patient is a 31-year-old male with a history of schizoaffective disorder and some substance abuse. He presents at this time due to destabilization in his social circumstance, specifically a conflict with his partner. His concerns about the relationship seem to be reasonable and he has an understandable desire to make some changes there. He feels hopeful that his partner will participate with him in this. Otherwise, he wants to continue his outpatient medications and might prefer to reenter more active psychotherapy. PLAN: 1. Admit to the [facility] inpatient unit on an M1 hold. 2. Monitor on suicide precautions for any attempts at self-harm. 3. Engage in individual, group, and milieu psychotherapies. 4. Conduct serial clinical interviews to better understand his overall condition as his symptoms are certainly not typical for schizoaffective disorder , though I may not have a full understanding of his condition at this time. 5. Will continue his outpatient medications without the clonidine including Lexapro and Topamax. We will titrate the Topamax to 50 mg b.i.d. and monitor. The risks, benefits, and alternatives of all his medicines are discussed and he agrees to proceed. ESTIMATED LENGTH OF STAY: Three to 5 days. /[id number]/MODL MTDD
--- NOTE | 2016-12-29 17:45 | BCON ---
[f rep st] BEHAVIORAL HEALTH CONSULTATION INTERNAL MEDICINE CONSULTATION DATE OF CONSULTATION: 12/29/2016 REFERRING PHYSICIAN: Carolann Bosch MD REASON FOR REFERRAL: Medical clearance for inpatient behavioral health stay. HISTORY OF PRESENT ILLNESS: The patient came to the Emergency Department 2 days ago reporting that he had taken 30 clonidine 0.1 mg tablets, plus a number of diphenhydramine tablets in an attempt to harm himself. He was evaluated by the mental health team, and admitted for further psychiatric care. Evaluation in the Emergency Department included an echocardiogram, which showed normal sinus rhythm. His vitals were normal, though slightly hypotensive and slightly bradycardic, and laboratory evaluation revealed renal insufficiency. He currently is without any acute medical complaints. He wonders if he has sleep apnea. He reports that he snores, that he wakes up at night thinking that he is not breathing, and that he has daytime sleepiness. Otherwise, he is without any acute complaints. He reports he had constipation, but it resolved with laxative treatment. PAST MEDICAL HISTORY: 1. HIV with very good control, and undetectable viral load and normal CD4 count in August of this year. 2. Mental health issues with diagnoses of depression, bipolar disorder, and anxiety, as well as schizoaffective. 3. Human papilloma virus. PAST SURGICAL HISTORY: 1. He has had wisdom teeth extraction. 2. He has had human papilloma virus wart removed from his anus. MEDICATIONS PRIOR TO ADMISSION: 1. Topiramate 25 mg p.o. b.i.d. daily. 2. Clonidine 0.1 mg p.o. q.h.s. 3. Escitalopram 15 mg p.o. daily. 4. Abacavir/dolutegravir/lamivudine 1 p.o. daily. ALLERGIES: Listed to multiple antipsychotic medications as follows: Haloperidol, lurasidone, olanzapine, promethazine, and Ziprasidone. SOCIAL HISTORY: He lives with his partner. He is a smoker. 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 FAMILY HISTORY: Noncontributory. REVIEW OF SYSTEMS: As in HPI. He reports he had constipation, but it has resolved. He had lightheadedness with standing, but that has resolved also. He had dry mouth, which has improved. Otherwise, a 10-point review of systems is negative. PHYSICAL EXAM: VITAL SIGNS: Blood pressure at midnight was 94/55, pulse was 56 , respiratory rate was 14, oxygen saturation was 97% on room air, temperature was 36.6 degrees centigrade, his weight is 72.6 kg, for a body mass index of 24.3. GENERAL: This is a well-nourished, well-developed man. He appears younger than his chronologic age, cooperative, and in no acute distress. HEENT : Extraocular movements are intact. Pupils are equal, round, and reactive to light. Mucous membranes are moist. Dentition is in good condition. He has a moderately crowded airway, Mallampati class 3. NECK: Supple. HEART: There is regular rate and rhythm with no murmurs, rubs, or gallops. LUNGS: Clear to auscultation bilaterally. ABDOMEN: Soft, nontender, nondistended with normoactive bowel sounds. EXTREMITIES: There is no cyanosis, clubbing, or edema. NEUROLOGIC: He is alert and oriented x3. Cranial nerves 2 through 12 are grossly intact. There is no focal weakness. Sensation is intact to light touch. LABORATORY STUDIES: Drawn in the Emergency Department: CBC showed an elevated white blood cell count at 10.39 with no left shift. He had mild anemia with a hemoglobin of 13.6 and hematocrit of 38.4. Serum chemistry showed a creatinine of 1.6. Otherwise, renal function and electrolytes were overall within normal limits. Liver function tests were normal. Toxicology screen in the serum was negative for salicylates, acetaminophen, or ethyl alcohol. Urine was negative for any substances of abuse. ASSESSMENT/PLAN: 1. Mental health issues. Pending further evaluation and management per Psychiatry and the mental health team. 2. Acute renal insufficiency of unclear etiology. He had normal renal function on labs that were drawn at the beginning of this month. I will repeat a basic metabolic profile in the morning to evaluate whether he has had recovery. It could be that he was acutely hypotensive after his overdose and has suffered a kidney injury as a result. 3. Human immunodeficiency virus. His Triumeq combination medication has been ordered. I have consulted with pharmacy to determine whether dosing needs to be modified for renal insufficiency. His HIV has been very well controlled with undetectable viral load and normal CD4 count in August of this year. 4. Overdose of clonidine and diphenhydramine. Other than a somewhat low blood pressure, he does not appear to be acutely affected at present. He has not previously had blood pressures as low as this on chart review for the past year. So, he likely is still seeing some effect of the clonidine, though it is short-acting drug. His basic metabolic profile is not otherwise consistent with dehydration as an etiology of his acute renal insufficiency or of his low blood pressure. Advise continue monitoring of blood pressure. 5. Anemia of unclear etiology. It is mild and asymptomatic, and may be related to his antiretroviral medications. He can follow up as an outpatient. 6. Concern for obstructive sleep apnea. He has symptoms consistent with possible sleep apnea, and he has a moderately crowded airway and short jaw. Advise a sleep study as an outpatient. I see no medical contraindications to the patient's continued stay in the inpatient behavioral health unit or to any psychiatric medications or procedures. Thank you very much for including me in the care of the patient. Please do not hesitate to contact me or the hospitalist service should there be need for further medical evaluation. /[id number]/MODL MTDD
[2016-12-30] MEDS: LORazepam 0.5 MG TAB PO PRN (02:23)
[2016-12-30] MEDS: NICOTINE POLACRILEX 2 MG GUM B PRN (03:23)
[2016-12-30] MEDS: TOPIRAMATE 25 MG TAB PO SCH ×2 (07:51→20:18)
[2016-12-30] MEDS: ESCITALOPRAM OXALATE 10 MG TAB PO SCH (07:52)
[2016-12-30] MEDS: LAMIVUDI PO SCH (07:55)
[2016-12-30] MEDS: DOLUTEGRAVIR PO SCH (07:55)
[2016-12-30] MEDS: ABACAVIR PO SCH (07:55)
[2016-12-30 10:04] LABS: ANION GAP 10 mEq/L (8-16); CALCIUM 9.1 mg/dL (8.5-10.4); CARBON DIOXIDE 19 mEq/l (22-31); CHLORIDE 107 mEq/L (97-110); CREATININE 1.5 mg/dL (0.7-1.3); GLOMERULAR FILTRATION RATE 54; GLUCOSE 82 mg/dL (70-100); POTASSIUM 4.5 mEq/L (3.5-5.2); SODIUM 136 mEq/L (134-144)
[2016-12-30] MEDS: MAG HYDROX/AL HYDROX/SIMETH 30 ML UDCUP PO PRN ×2 (10:44→21:33)
[2016-12-30] MEDS: NICOTINE 14 MG/24 HR PATCH TD SCH (11:31)
--- NOTE | 2016-12-30 13:11 | SOAPPROG ---
SOAP Progress Note Assessment/Plan: Assessment: * Renal insufficiency. Due to hypotension from clonidine? Urinary retention from diphenhydramine? Has improved slightly but BP still low. Ordered NS 1000 cc IV at 125 cc/hr. Recheck vitals and BMP after NS completed. 12/30/16 13:09 * Upon further discussion with nursing on Behavioral Health, sending him to ED for likely admission to continue evaluation and treatment of renal insufficiency and hypotension. 12/30/16 13:15 Subjective: Reviewed BP and labs. Creatinine improved from 1.6 to 1.5. BP still low with systolics in the 80s. Objective: Vital Signs Temp Pulse Resp BP Pulse Ox 36.4 C 91 16 82/46 L 96 12/30/16 03:07 12/30/16 03:07 12/30/16 03:07 12/30/16 06:30 12/30/16 03:07 Laboratory Results 12/30/16 06:30 ICD10 Worksheet Patient Problems: Problems Problem Status Onset Anxiety Acute Anxiety attack Acute
[2016-12-30] MEDS ORDERED: NS 1,000 ML IV SCH (13:15)
--- NOTE | 2016-12-30 14:33 | SOAPPROG ---
SOAP Progress Note Assessment/Plan: Assessment: Plan: 12/30/16 14:33 Improved. CCM. Await ED eval. Subjective: Pt seen, discussed with staff. Reports feeling "a lot better." Appears brighter, calmer. States to me that he is having "no anxiety". Appreciate Dr. Mercado's input. Will refer to ED for further eval and tx per his recommendation. Objective: Vital Signs Temp Pulse Resp BP Pulse Ox 36.4 C 73 14 109/63 98 12/30/16 03:07 12/30/16 13:32 12/30/16 13:32 12/30/16 13:32 12/30/16 13:32 Laboratory Results 12/30/16 06:30 MSE: Calm, coop. Affect is brighter, stable, approp. Mood is "better." TP linear. TC reveals no psychosis at this time, but he describes ongoing visual experiences. He denies any AH's. No obvious delusions. Denies current SI. - Time Spent With Patient Time Spent With Patient: 15" ICD10 Worksheet Patient Problems: Problems Problem Status Onset Anxiety Acute Anxiety attack Acute
[2016-12-31] MEDS: NICOTINE 14 MG/24 HR PATCH TD SCH (06:58)
[2016-12-31] MEDS: ESCITALOPRAM OXALATE 10 MG TAB PO SCH (08:13)
[2016-12-31] MEDS: LAMIVUDI PO SCH (08:15)
[2016-12-31] MEDS: DOLUTEGRAVIR PO SCH (08:15)
[2016-12-31] MEDS: ABACAVIR PO SCH (08:15)
[2016-12-31] MEDS: TOPIRAMATE 25 MG TAB PO SCH ×2 (08:15→19:16)
--- NOTE | 2016-12-31 09:08 | SOAPPROG ---
SOAP Progress Note Assessment/Plan: Assessment: Plan: 12/31/16 08:50 DAY ' UPDATE/EXAM: Pt presents as 31 yo SWM with chronic h /o polydrug abuse (ecstasy , meth, amphetamines) and ? Schizoaffective Disorder; is harp and HIV + but medically well; admitted for depressive crisis and suicide attempt by meds OD triggered by chronic and worsening stress in conflictual relationship with his live-in partner of 4 years duration. Told partner about Clonidine OD, brought to ED by partner and cleared for admission on 12/29. Descriptively improving but has been hypotensive and creatinine elevated at 1.6. Dropped to 1.5 after 1 L IVF given in ED yesterday./ on direct exam pt presents as cooperative, calm and conversant; mood neutral, nonpsychotic, poor insight and preoccupied with DC ; does state dyadic conflict with partner is chronic, worsening, and was primary factor in driving OD; he is now relieved to have survived and "is all better". Agress to sign in voluntarily and invite partner in for 3-way meeting ti discuss f/u plan about improving relationship. He also states that his creatinine has been chronically elevated and thought to be related to his HIV medications, not needed treatment but is monitored by his community HIV physician. BP WNL. Pt has been BZ seeking but Ativan prn has been dc'd by Dr. Varela. ASSESSMENT/PLAN: syndromal depression resolving; poor sensibility about treatment needs - sobriety and relationship conflicts/ no change in medications or manaagement plan; will have pt s/i voluntarily, see couple tomorrow, anticipate DC tomorrow with referral back to [facility] including adding sobriety rx and couples' rx to the DC p tashia per CC input Objective: Vital Signs Temp Pulse Resp BP Pulse Ox 36.5 C 78 12 120/72 97 12/31/16 00:30 12/31/16 00:30 12/31/16 00:30 12/31/16 00:30 12/31/16 00:30 Laboratory Results 12/30/16 06:30 ICD10 Worksheet Patient Problems: Problems Problem Status Onset Anxiety Acute Anxiety attack Acute
[2016-12-31] MEDS ORDERED: LOPERAMIDE HCL 1 MG/5 ML UDCUP PO ONE (10:54)
[2016-12-31] MEDS ORDERED: LOPERAMIDE HCL 2 MG CAP PO ONE (11:15)
[2016-12-31] MEDS ORDERED: PALIPERIDONE PALMITATE 156 MG/ML SYR IM ONE (13:24)
[2016-12-31] MEDS: MAG HYDROX/AL HYDROX/SIMETH 30 ML UDCUP PO PRN (19:45)
[2016-12-31] MEDS: diphenhydrAMINE 25 MG CAP PO PRN (21:29)
--- NOTE | 2017-01-01 06:55 | SOAPPROG ---
SOAP Progress Note Assessment/Plan: Assessment: Plan: 12/31/16 08:50 DAY UPDATE/EXAM: Pt presents as 31 yo SWM with chronic h /o polydrug abuse (ecstasy , meth, amphetamines) and ? Schizoaffective Disorder; is harp and HIV + but medically well; admitted for depressive crisis and suicide attempt by meds OD triggered by chronic and worsening stress in conflictual relationship with his live-in partner of 4 years duration. Told partner about Clonidine OD, brought to ED by partner and cleared for admission on 12/29. Descriptively improving but has been hypotensive and creatinine elevated at 1.6. Dropped to 1.5 after 1 L IVF given in ED yesterday./ on direct exam pt presents as cooperative, calm and conversant; mood neutral, nonpsychotic, poor insight and preoccupied with DC ; does state dyadic conflict with partner is chronic, worsening, and was primary factor in driving OD; he is now relieved to have survived and "is all better". Agrees to sign in voluntarily and invite partner in for 3-way meeting to discuss f/u plan about improving relationship. He also states that his creatinine has been chronically elevated and thought to be related to his HIV medications, not needed treatment but is monitored by his community HIV physician. BP WNL. Pt has been BZ seeking but Ativan prn has been dc'd by Dr. Varela. ASSESSMENT/PLAN: syndromal depression resolving; poor sensibility about treatment needs - sobriety and relationship conflicts/ no change in medications or management plan; will have pt s/i voluntarily, see couple tomorrow, ? DC tomorrow with referral back to [facility] including adding sobriety rx and couples' rx to the DC plan per CC input 01/01/17 DAY UPDATE/EXAM: Objective: Vital Signs Temp Pulse Resp BP Pulse Ox 36.3 C 71 16 106/75 91 L 01/01/17 00:30 01/01/17 00:30 01/01/17 00:30 01/01/17 00:30 01/01/17 00:30 Laboratory Results 12/30/16 06:30 ICD10 Worksheet Patient Problems: Problems Problem Status Onset Anxiety Acute Anxiety attack Acute
[2017-01-01] MEDS ORDERED: LOPERAMIDE HCL 1 MG/5 ML UDCUP PO PRN (07:34)
[2017-01-01] MEDS: LAMIVUDI PO SCH (08:16)
[2017-01-01] MEDS: ABACAVIR PO SCH (08:16)
[2017-01-01] MEDS: LOPERAMIDE HCL 2 MG CAP PO PRN ×2 (08:16→20:03)
[2017-01-01] MEDS: DOLUTEGRAVIR PO SCH (08:16)
[2017-01-01] MEDS: TOPIRAMATE 25 MG TAB PO SCH ×2 (08:17→20:00)
[2017-01-01] MEDS: NICOTINE 14 MG/24 HR PATCH TD SCH (08:17)
[2017-01-01] MEDS: ESCITALOPRAM OXALATE 10 MG TAB PO SCH (08:17)
[2017-01-01] MEDS ORDERED: PALIPERIDONE PALMITATE 156 MG/ML SYR IM ONE (09:00)
[2017-01-01] MEDS: hydrOXYzine HCL 50 MG TAB PO PRN ×2 (10:36→16:25)
--- NOTE | 2017-01-01 10:51 | SOAPPROG ---
SOAP Progress Note Assessment/Plan: Assessment: Plan: 12/31/16 08:50 DAY UPDATE/EXAM: Pt presents as 31 yo SWM with chronic h /o polydrug abuse (ecstasy , meth, amphetamines) and ? Schizoaffective Disorder; is harp and HIV + but medically well; admitted for depressive crisis and suicide attempt by meds OD triggered by chronic and worsening stress in conflictual relationship with his live-in partner of 4 years duration. Told partner about Clonidine OD, brought to ED by partner and cleared for admission on 12/29. Descriptively improving but has been hypotensive and creatinine elevated at 1.6. Dropped to 1.5 after 1 L IVF given in ED yesterday./ on direct exam pt presents as cooperative, calm and conversant; mood neutral, nonpsychotic, poor insight and preoccupied with DC ; does state dyadic conflict with partner is chronic, worsening, and was primary factor in driving OD; he is now relieved to have survived and "is all better". Agrees to sign in voluntarily and invite partner in for 3-way meeting to discuss f/u plan about improving relationship. He also states that his creatinine has been chronically elevated and thought to be related to his HIV medications, not needed treatment but is monitored by his community HIV physician. BP WNL. Pt has been BZ seeking but Ativan prn has been dc'd by Dr. Varela. ASSESSMENT/PLAN: syndromal depression resolving; poor sensibility about treatment needs - sobriety and relationship conflicts/ no change in medications or management plan; will have pt s/i voluntarily, see couple tomorrow, ? DC tomorrow with referral back to [facility] including adding sobriety rx and couples' rx to the DC plan per CC input 01/01/17 08:45 DAY UPDATE/EXAM: Nursing reports pt slept well (8 hrs), has remained in behavioral control, c/w meds and cares; disclosing in contact with CC yesterday about h/o of becoming registered sex offender at age 22 for interacting sexually X 1 with 14 yo boy/ on direct exam he was able to continue to report this history as continuing to trouble him, also troubled by the 4 year relationship with current partner whom he feels "invisible" with in that he is "used" to fulfill partner's needs with no mutuality; finally reported visit with [facility] yesterday during which 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 Remains distressed about extending his inpt stay thru minimally tomorrow but again looks forward to meeting with partner and me later today and arriving at a corrective "action plan"; denies current suicidality but states this is his only suicided attempt. ASSESSMENT/PLAN: residual syndromal anxiety and depression; no psychosis elicited; data base expanding about depressogenic issues/ no change in meds or management plan; partner meeting at 12:00 today; inpt course extended Objective: Vital Signs Temp Pulse Resp BP Pulse Ox 36.3 C 71 16 106/75 91 L 01/01/17 00:30 01/01/17 00:30 01/01/17 00:30 01/01/17 00:30 01/01/17 00:30 Laboratory Results 12/30/16 06:30 ICD10 Worksheet Patient Problems: Problems Problem Status Onset Anxiety Acute Anxiety attack Acute
[2017-01-01] MEDS: diphenhydrAMINE 25 MG CAP PO PRN (21:43)
[2017-01-02] MEDS: hydrOXYzine HCL 50 MG TAB PO PRN ×2 (02:40→11:49)
--- NOTE | 2017-01-02 07:20 | SOAPPROG ---
SOAP Progress Note Assessment/Plan: Assessment: Plan: 12/31/16 08:50 DAY UPDATE/EXAM: Pt presents as 31 yo SWM with chronic h /o polydrug abuse (ecstasy , meth, amphetamines) and ? Schizoaffective Disorder; is harp and HIV + but medically well; admitted for depressive crisis and suicide attempt by meds OD triggered by chronic and worsening stress in conflictual relationship with his live-in partner of 4 years duration. Told partner about Clonidine OD, brought to ED by partner and cleared for admission on 12/29. Descriptively improving but has been hypotensive and creatinine elevated at 1.6. Dropped to 1.5 after 1 L IVF given in ED yesterday./ on direct exam pt presents as cooperative, calm and conversant; mood neutral, nonpsychotic, poor insight and preoccupied with DC ; does state dyadic conflict with partner is chronic, worsening, and was primary factor in driving OD; he is now relieved to have survived and "is all better". Agrees to sign in voluntarily and invite partner in for 3-way meeting to discuss f/u plan about improving relationship. He also states that his creatinine has been chronically elevated and thought to be related to his HIV medications, not needed treatment but is monitored by his community HIV physician. BP WNL. Pt has been BZ seeking but Ativan prn has been dc'd by Dr. Varela. ASSESSMENT/PLAN: syndromal depression resolving; poor sensibility about treatment needs - sobriety and relationship conflicts/ no change in medications or management plan; will have pt s/i voluntarily, see couple tomorrow, ? DC tomorrow with referral back to [facility] including adding sobriety rx and couples' rx to the DC plan per CC input 01/01/17 08:45 DAY UPDATE/EXAM: Nursing reports pt slept well (8 hrs), has remained in behavioral control, c/w meds and cares; disclosing in contact with CC yesterday about h/o of becoming registered sex offender at age 22 for interacting sexually X 1 with 14 yo boy/ on direct exam he was able to continue to report this history as continuing to trouble him, also troubled by the 4 year relationship with current partner whom he feels "invisible" with in that he is "used" to fulfill partner's needs with no mutuality; finally reported visit with [facility] yesterday during which 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 Remains distressed about extending his inpt stay thru minimally tomorrow but again looks forward to meeting with partner and me later today and arriving at a corrective "action plan"; denies current suicidality but states this is his only suicided attempt. ASSESSMENT/PLAN: residual syndromal anxiety and depression; no psychosis elicited; data base expanding about depressogenic issues/ no change in meds or management plan; partner meeting at 12:00 today; inpt course extended 01/02/17 DAY ' UPDATE/EXAM: Objective: Vital Signs Temp Pulse Resp BP Pulse Ox 36.7 C 84 16 107/72 97 01/02/17 00:30 01/02/17 00:30 01/02/17 00:30 01/02/17 00:30 01/02/17 00:30 Laboratory Results 12/30/16 06:30 ICD10 Worksheet Patient Problems: Problems Problem Status Onset Anxiety Acute Anxiety attack Acute
[2017-01-02] MEDS: ESCITALOPRAM OXALATE 10 MG TAB PO SCH (08:24)
[2017-01-02] MEDS: TOPIRAMATE 25 MG TAB PO SCH (08:25)
[2017-01-02] MEDS: ABACAVIR PO SCH (08:28)
[2017-01-02] MEDS: LAMIVUDI PO SCH (08:28)
[2017-01-02] MEDS: DOLUTEGRAVIR PO SCH (08:28)
[2017-01-02 11:45] VITALS: BP 119/72; PULSE 108; RESP 15; TEMP 97.7; O2SAT 96
[2017-01-02] MEDS: NICOTINE 14 MG/24 HR PATCH TD SCH (11:51)
--- NOTE | 2017-01-02 13:27 | SOAPPROG ---
SOAP Progress Note Assessment/Plan: Assessment: Plan: 12/31/16 08:50 DAY UPDATE/EXAM: Pt presents as 31 yo SWM with chronic h /o polydrug abuse (ecstasy , meth, amphetamines) and ? Schizoaffective Disorder; is harp and HIV + but medically well; admitted for depressive crisis and suicide attempt by meds OD triggered by chronic and worsening stress in conflictual relationship with his live-in partner of 4 years duration. Told partner about Clonidine OD, brought to ED by partner and cleared for admission on 12/29. Descriptively improving but has been hypotensive and creatinine elevated at 1.6. Dropped to 1.5 after 1 L IVF given in ED yesterday./ on direct exam pt presents as cooperative, calm and conversant; mood neutral, nonpsychotic, poor insight and preoccupied with DC ; does state dyadic conflict with partner is chronic, worsening, and was primary factor in driving OD; he is now relieved to have survived and "is all better". Agrees to sign in voluntarily and invite partner in for 3-way meeting to discuss f/u plan about improving relationship. He also states that his creatinine has been chronically elevated and thought to be related to his HIV medications, not needed treatment but is monitored by his community HIV physician. BP WNL. Pt has been BZ seeking but Ativan prn has been dc'd by Dr. Varela. ASSESSMENT/PLAN: syndromal depression resolving; poor sensibility about treatment needs - sobriety and relationship conflicts/ no change in medications or management plan; will have pt s/i voluntarily, see couple tomorrow, ? DC tomorrow with referral back to [facility] including adding sobriety rx and couples' rx to the DC plan per CC input 01/01/17 08:45 DAY UPDATE/EXAM: Nursing reports pt slept well (8 hrs), has remained in behavioral control, c/w meds and cares; disclosing in contact with CC yesterday about h/o of becoming registered sex offender at age 22 for interacting sexually X 1 with 14 yo boy/ on direct exam he was able to continue to report this history as continuing to trouble him, also troubled by the 4 year relationship with current partner whom he feels "invisible" with in that he is "used" to fulfill partner's needs with no mutuality; finally reported visit with [facility] yesterday during which he told her about 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 Remains distressed about extending his inpt stay thru minimally tomorrow but again looks forward to meeting with partner and me later today and arriving at a corrective "action plan"; denies current suicidality but states this is his only suicided attempt. ASSESSMENT/PLAN: residual syndromal anxiety and depression; no psychosis elicited; data base expanding about depressogenic issues/ no change in meds or management plan; partner meeting at 12:00 today; inpt course extended 01/02/17 13:20 Dischaarge Note DAY ' UPDATE/EXAM: Objective: Vital Signs Temp Pulse Resp BP Pulse Ox 36.5 C 108 H 15 119/72 96 01/02/17 11:44 01/02/17 11:44 01/02/17 11:44 01/02/17 11:44 01/02/17 11:44 Laboratory Results 12/30/16 06:30 ICD10 Worksheet Patient Problems: Problems Problem Status Onset Anxiety Acute Anxiety attack Acute
--- NOTE | 2017-01-02 14:13 | SOAPPROG ---
SOAP Progress Note Assessment/Plan: Assessment: Plan: 12/31/16 08:50 DAY UPDATE/EXAM: Pt presents as 31 yo SWM with chronic h /o polydrug abuse (ecstasy , meth, amphetamines) and ? Schizoaffective Disorder; is harp and HIV + but medically well; admitted for depressive crisis and suicide attempt by meds OD triggered by chronic and worsening stress in conflictual relationship with his live-in partner of 4 years duration. Told partner about Clonidine OD, brought to ED by partner and cleared for admission on 12/29. Descriptively improving but has been hypotensive and creatinine elevated at 1.6. Dropped to 1.5 after 1 L IVF given in ED yesterday./ on direct exam pt presents as cooperative, calm and conversant; mood neutral, nonpsychotic, poor insight and preoccupied with DC ; does state dyadic conflict with partner is chronic, worsening, and was primary factor in driving OD; he is now relieved to have survived and "is all better". Agrees to sign in voluntarily and invite partner in for 3-way meeting to discuss f/u plan about improving relationship. He also states that his creatinine has been chronically elevated and thought to be related to his HIV medications, not needed treatment but is monitored by his community HIV physician. BP WNL. Pt has been BZ seeking but Ativan prn has been dc'd by Dr. Varela. ASSESSMENT/PLAN: syndromal depression resolving; poor sensibility about treatment needs - sobriety and relationship conflicts/ no change in medications or management plan; will have pt s/i voluntarily, see couple tomorrow, ? DC tomorrow with referral back to [facility] including adding sobriety rx and couples' rx to the DC plan per CC input 01/01/17 08:45 DAY UPDATE/EXAM: Nursing reports pt slept well (8 hrs), has remained in behavioral control, c/w meds and cares; disclosing in contact with CC yesterday about h/o of becoming registered sex offender at age 22 for interacting sexually X 1 with 14 yo boy/ on direct exam he was able to continue to report this history as continuing to trouble him, also troubled by the 4 year relationship with current partner whom he feels "invisible" with in that he is "used" to fulfill partner's needs with no mutuality; finally reported visit with [facility] yesterday during which he told her 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 Remains distressed about extending his inpt stay thru minimally tomorrow but again looks forward to meeting with partner and me later today and arriving at a corrective "action plan"; denies current suicidality but states this is his only suicided attempt. ASSESSMENT/PLAN: residual syndromal anxiety and depression; no psychosis elicited; data base expanding about depressogenic issues/ no change in meds or management plan; partner meeting at 12:00 today; inpt course extended 01/02/17 13:20 Discharge Note DAY ' UPDATE/EXAM: Nursing reports pt has sustained behavioral control, improving sleep time, observed as descriptively improving/ on direct exam pt presents as calm, conversant, cooperative; denies SI, mood brighter; continues with passive and concrete thought process a/w stating investment in f/u care; the "here and now" focus of his thought process underscores the lack of observing ego and capacity for reflectiveness; also he continues to evidence a narcissistic froma of reference; reviewed meds and DC plans with an emphasis on our recommendation to him and P for referral for mix of individual and couples' therapy with the same clinician; speaker phone contact with partner affirmed partner's interest in participating in this followup. ASSESSMENT/PLAN: sufficiently stable for DC today DC today to partner apartment, transport by partner f/u with P psychiatrist 02/01 recommendation for individual/couples' therapy (one clinician) meds at DC as referenced; 30 day script for Topomax , Hydroxyzine provided; o/w has home meds see Discharge Summary Medications Generic Name Dose Route Start Last Admin Trade Name Freq PRN Reason Stop Dose Admin Miscellaneous Medication 1 each 12/29/16 11:45 01/02/17 08:28 Abacavir/Dolutegravir/Lamivudi [Triumeq Tablet] PO 06/27/17 11:44 1 tab DAILY AMRIT Topiramate 50 mg 12/29/16 11:30 07/03/17 08:25 Topamax PO 06/27/17 11:29 50 mg BID AMRIT Diphenhydramine HCl 50 mg 12/31/16 21:00 01/01/17 21:43 Benadryl PO 06/29/17 20:59 50 mg HS PRN INSOMNIA Escitalopram Oxalate 15 mg 12/29/16 11:30 01/02/17 08:24 Lexapro PO 06/27/17 11:29 15 mg DAILY AMRIT Hydroxyzine HCl 50 mg 01/01/17 09:13 01/02/17 11:49 Hydroxyzine Hcl PO 06/30/17 09:12 50 mg Q6HRS PRN Anxiety Objective: Vital Signs Temp Pulse Resp BP Pulse Ox 36.5 C 108 H 15 119/72 96 01/02/17 11:44 01/02/17 11:44 01/02/17 11:44 01/02/17 11:44 01/02/17 11:44 Laboratory Results 12/30/16 06:30 ICD10 Worksheet Patient Problems: Problems Problem Status Onset Anxiety Acute Anxiety attack Acute
== END 2017-01-02 14:30 | disposition home or self-care (01) | DRG 918 ==
LOC: BBEH 12-29 00:10
PROVIDERS: ADMIT Psychiatry & Neurology Psychiatry; ATTEND Psychiatry & Neurology Psychiatry
DX: T46.5X2A Poisoning by other antihypertensive drugs, intentional self-harm, initial encounter (principal); T45.0X2A Poisoning by antiallergic and antiemetic drugs, intentional self-harm, initial encounter; F25.1 Schizoaffective disorder, depressive type; F43.10 Post-traumatic stress disorder, unspecified; N28.9 Disorder of kidney and ureter, unspecified; D64.9 Anemia, unspecified; G47.33 Obstructive sleep apnea (adult) (pediatric); Z23 Encounter for immunization; Z21 Asymptomatic human immunodeficiency virus [HIV] infection status
CPT/HCPCS: 80305; G0009; G0480; J2426

== ENCOUNTER 2016-12-30 14:06 | Emergency (ER) | payer MEDICAID ==
--- NOTE | 2016-12-30 14:30 | EDPHY ---
H & P HPI/ROS: HPI CHIEF COMPLAINT: Hypotension from [address] [place] [address] HISTORY OF PRESENT ILLNESS: This patient 31-year-old male, well-known to me, history of HIV, schizoaffective disorder, presents emergency room from [address] [place] [address] inpatient psychiatric care for hypotension. According to staff his blood pressures been running 90 systolic. He is asymptomatic. Denies lightheadedness , chest pain or shortness of breath. His blood pressure upon arrival here in emergency room is 113 systolic. He had stable blood pressure by EMS. He has no complaints. He was seen 3 days earlier for clonidine overdose on Benadryl overdose. He denies any current ingestion. According to [address] [place] [address] staff he was sent over here to the emergency room as he has been having blood pressures the 90 systolic %period% creatinine 1.5. They are concerned that he may need IV fluids and need for IV access. Upon arrival here in emergency room is hemodynamically stable no acute distress. Blood pressure is 117 systolic. Will check basic blood work. IV fluid bolus 1 L. Past Medical History: HIV, schizoaffective disorder, depression, suicidal ideation Past Surgical History: No recent surgical history Social History: Currently an inpatient psychiatric care, was smoking tobacco, occasional alcohol use, occasional drug use Family History: Noncontributory ROS REVIEW OF SYSTEMS: A comprehensive 10 point review of systems is otherwise negative aside from elements mentioned in the history of present illness. Exam Constitutional appears well nontoxic, triage nursing summary reviewed, vital signs reviewed, awake/alert. Eyes normal conjunctivae and sclera, EOMI, PERRLA. HENT normal inspection, atraumatic, moist mucus membranes, no epistaxis, neck supple/ no meningismus, no raccoon eyes. Respiratory clear to auscultation bilaterally, normal breath sounds, no respiratory distress, no wheezing. Cardiovascular rate normal, regular rhythm, no murmur, no edema, distal pulses normal. Gastrointestinal soft, non-tender, no rebound, no guarding, normal bowel sounds, no distension, no pulsatile mass. Genitourinary no CVA tenderness. Musculoskeletal no midline vertebral tenderness, full range of motion, no calf swelling, no tenderness of extremities, no meningismus, good pulses, neurovascularly intact. Skin pink, warm, & dry, no rash, skin atraumatic. Neurologic awake, alert and oriented x 3, AAOx3, moves all 4 extremities equally, motor intact, sensory intact, CN II-XII intact, normal cerebellar, normal vision, normal speech. Psychiatric normal mood/affect. Heme/Lymph/Immune no lymphadenopathy. Differential Diagnosis: Includes but is not limited to in a particular order, dehydration, electrolyte disturbance, transient hypotension, hypertension from clonidine overdose which I doubt given its over 3 days ago. Medical Decision Making: Plan for this patient will start an IV, IV fluid bolus check basic blood work, monitor blood pressure. Re-evaluation: 1520: Re-evaluation this time patient has no complaints he is resting comfortably. Blood pressure 122/70. After 1 L fluid creatinine 1.4. He is stable for discharge back to [address] [place] [address] [facility]. No evidence of hypotension here in the emergency room. Source: Patient - Personal History Tetanus Vaccine Date: < 10 YEARS - Medical/Surgical History Hx Asthma: No Hx Chronic Respiratory Disease: No Hx Diabetes: No Hx Cardiac Disease: No Hx Renal Disease: No Hx Cirrhosis: No Hx Alcoholism: No Hx HIV/AIDS: Yes Hx Splenectomy or Spleen Trauma: No Other PMH: pmh- depression, bipolar, anxiety, HIV+, SCHIZOAFFECTIVE, HTN. psh- wisdom, HPV removed from anus. - Social History Smoking Status: Current every day smoker Constitutional: Initial Vital Signs Temperature (C) 36.7 C 12/30/16 14:06 Heart Rate 72 12/30/16 14:06 Respiratory Rate 16 12/30/16 14:06 Blood Pressure 113/77 12/30/16 14:06 O2 Sat (%) 100 12/30/16 14:06 O2 Delivery Mode Room Air Allergies/Adverse Reactions: haloperidol [From Haldol] Allergy (Verified 12/28/16 09:11) haloperidol lactate [From Haldol] Allergy (Verified 12/28/16 09:11) lurasidone HCl [From Latuda] Allergy (Verified 12/27/16 22:48) olanzapine [From Zyprexa] Allergy (Verified 12/28/16 09:11) promethazine HCl [From Phenergan] Allergy (Verified 12/28/16 09:11) ziprasidone HCl [From Geodon] Allergy (Verified 12/28/16 09:11) ziprasidone mesylate [From Geodon] Allergy (Verified 12/28/16 09:11) Home Medications: Medication Instructions Recorded Abacavir/Dolutegravir/Lamivudi 1 each PO DAILY 12/29/16 [Triumeq Tablet] Escitalopram Oxalate [Lexapro] 15 mg PO DAILY 12/29/16 Topiramate [Topamax] 25 mg PO BID 12/29/16 clonIDINE [Catapres (*)] 0.1 mg PO HS 12/29/16 Medical Decision Making - Data Points Laboratory Results: Laboratory Results 12/30/16 14:25 12/30/16 14:25 12/30/16 12/30/16 14:25 14:25 WBC 12.10 10^3/uL H 10^3/uL (3.80-9.50) RBC 4.08 10^6/uL L 10^6/uL (4.40-6.38) Hgb 13.1 g/dL L g/dL (13.7-17.5) Hct 36.9 % L % (40.0-51.0) MCV 90.4 fL fL (81.5-99.8) MCH 32.1 pg pg (27.9-34.1) MCHC 35.5 g/dL g/dL (32.4-36.7) RDW 12.3 % % (11.5-15.2) Plt Count 301 10^3/uL 10^3/uL (150-400) MPV 10.0 fL fL (8.7-11.7) Neut % (Auto) 69.0 % % (39.3-74.2) Lymph % (Auto) 19.0 % % (15.0-45.0) Bullock % (Auto) 9.8 % % (4.5-13.0) Eos % (Auto) 1.1 % % (0.6-7.6) Baso % (Auto) 0.4 % % (0.3-1.7) Nucleat RBC Rel Count 0.0 % % (0.0-0.2) Absolute Neuts (auto) 8.35 10^3/uL H 10^3/uL (1.70-6.50) Absolute Lymphs (auto) 2.30 10^3/uL 10^3/uL (1.00-3.00) Absolute Monos (auto) 1.19 10^3/uL H 10^3/uL (0.30-0.80) Absolute Eos (auto) 0.13 10^3/uL 10^3/uL (0.03-0.40) Absolute Basos (auto) 0.05 10^3/uL 10^3/uL (0.02-0.10) Absolute Nucleated RBC 0.00 10^3/uL 10^3/uL (0-0.01) Immature Gran % 0.7 % % (0.0-1.1) Immature Gran # 0.08 10^3/uL 10^3/uL (0.00-0.10) Sodium 133 mEq/L L mEq/L (134-144) Potassium 4.0 mEq/L mEq/L (3.5-5.2) Chloride 98 mEq/L mEq/L (97-110) Carbon Dioxide 21 mEq/l L mEq/l (22-31) Anion Gap 14 mEq/L mEq/L (8-16) BUN 12 mg/dL mg/dL (7-23) Creatinine 1.4 mg/dL H mg/dL (0.7-1.3) Estimated GFR 59 Glucose 78 mg/dL mg/dL (70-100) Calcium 9.7 mg/dL mg/dL (8.5-10.4) Medications Given: Discontinued Medications Sodium Chloride (Ns) 1,000 mls @ 0 mls/hr IV ONCE ONE PRN Reason: Wide Open Stop: 12/30/16 14:43 Last Admin: 12/30/16 14:44 Dose: 1,000 mls Departure - Departure Disposition: [facility] IP Clinical Impression: Suicidal ideation, Transient hypotension Condition: Good Referrals: Eliza Dotson NP [Primary Care Provider] - As per Instructions
[2016-12-30 14:33] VITALS: RESP 16; TEMP 98.1
[2016-12-30] MEDS ORDERED: NS 1,000 ML IV ONE (14:42)
[2016-12-30] MEDS ORDERED: CALCIUM CARBONATE 500 MG CHEWABLE TAB PO PRN (14:45)
[2016-12-30 14:47] LABS: % IMMATURE GRANULYOCYTES 0.7 % (0.0-1.1); ABSOLUTE IMMATURE GRANULOCYTES 0.08 10^3/uL (0.00-0.10); ADD DIFF? NO; ADD MORPH? NO; ADD SCAN? NO; ATYPICAL LYMPHOCYTE FLAG 0 (0-99); FRAGMENT RBC FLAG 0 (0-99); HEMATOCRIT 36.9 % (40.0-51.0); HEMOGLOBIN 13.1 g/dL (13.7-17.5); LEFT SHIFT FLG 20 (0-99); LIPEMIA HEMOLYSIS FLAG 90 (0-99); MEAN CELL HEMOGLOBIN 32.1 pg (27.9-34.1); MEAN CELL HEMOGLOBIN CONCENTR. 35.5 g/dL (32.4-36.7); MEAN CELL VOLUME 90.4 fL (81.5-99.8); PLATELET CLUMPS FLAG 10 (0-99); PLATELET COUNT 301 10^3/uL (150-400); RED BLOOD CELL COUNT 4.08 10^6/uL (4.40-6.38); RED CELL DISTRIBUTION WIDTH 12.3 % (11.5-15.2)
[2016-12-30 14:54] LABS: ANION GAP 14 mEq/L (8-16); CALCIUM 9.7 mg/dL (8.5-10.4); CARBON DIOXIDE 21 mEq/l (22-31); CHLORIDE 98 mEq/L (97-110); CREATININE 1.4 mg/dL (0.7-1.3); GLOMERULAR FILTRATION RATE 59; GLUCOSE 78 mg/dL (70-100); SODIUM 133 mEq/L (134-144)
[2016-12-30 16:35] VITALS: BP 119/87; PULSE 72; O2SAT 99
== END 2016-12-30 16:33 ==
LOC: EDUNIT#
DX: I95.9 Hypotension, unspecified (principal)

== ENCOUNTER 2017-04-27 10:49 | Emergency (ER) | payer MEDICAID ==
[2017-04-27 11:05] VITALS: BP 112/61; PULSE 95; RESP 16; TEMP 97.7; O2SAT 95
[2017-04-27] MEDS ORDERED: LORazepam 1 MG TAB PO ONE (11:26)
--- NOTE | 2017-04-27 11:26 | EDPHY ---
H & P Time Seen by Provider: 04/27/17 11:17 HPI/ROS: CHIEF COMPLAINT: Anxiety HISTORY OF PRESENT ILLNESS: 31-year-old male history of schizoaffective disorder, amphetamine use disorder, history of clonidine overdose, history of HIV, in the ER complaining of acute anxiety/panic attack after he learned that his mother was recently diagnosed with chronic pulmonary condition. This subsequently triggered acute anxiety and panic attack. He denies suicidal or homicidal ideation. Denies hallucination. Denies complaints of physical pain. Denies headache. PRIMARY CARE PROVIDER: REVIEW OF SYSTEMS: A ten point review of systems was performed and is negative with the exception of the items mentioned in the HPI PAST MEDICAL & SURGICAL HISTORY: Schizoaffective disorder. HIV-positive on maintenance HIV medications. History of amphetamine use and clonidine overdose. SOCIAL HISTORY: denies recent illicit drug use PHYSICAL EXAM (Prior to examination, patient consented to physical exam, hands were washed and my usual and customary physical exam procedures followed) 1) GENERAL: Well-developed, well-nourished, alert and oriented. Appears anxious. 2) HEAD: Normocephalic, atraumatic 3) HEENT: Pupils equal, round, reactive to light bilaterally. Sclera anicteric. 4) NECK: Full range of motion, no meningeal signs. 5) LUNGS: Clear auscultation bilaterally, no wheezes, no rhonchi, no retractions. 6) HEART: Regular rate and rhythm, no murmur, no heave, no gallop. 7) ABDOMEN: No guarding, no rebound, no focal tenderness, 8) MUSCULOSKELETAL: No peripheral edema or discoloration. 9) BACK: no visual or palpable abnormality. 10) SKIN: No rash, no petechiae. 11) Psychiatric: Patient is oriented X 3, there is no agitation. DIFFERENTIAL DIAGNOSIS: in no particular include but limited to suicidal ideation, homicidal ideation, depression, acute anxiety Smoking Status: Former smoker Constitutional: Initial Vital Signs Temperature (C) 36.5 C 04/27/17 11:03 Heart Rate 95 04/27/17 11:03 Respiratory Rate 16 04/27/17 11:03 Blood Pressure 112/61 04/27/17 11:03 O2 Sat (%) 95 04/27/17 11:03 O2 Delivery Mode Room Air Allergies/Adverse Reactions: haloperidol [From Haldol] Allergy (Verified 12/28/16 09:11) haloperidol lactate [From Haldol] Allergy (Verified 12/28/16 09:11) lurasidone HCl [From Latuda] Allergy (Verified 12/27/16 22:48) olanzapine [From Zyprexa] Allergy (Verified 12/28/16 09:11) promethazine HCl [From Phenergan] Allergy (Verified 12/28/16 09:11) ziprasidone HCl [From Geodon] Allergy (Verified 12/28/16 09:11) ziprasidone mesylate [From Geodon] Allergy (Verified 12/28/16 09:11) Home Medications: Medication Instructions Recorded Abacavir/Dolutegravir/Lamivudi 1 each PO DAILY 12/29/16 [Triumeq Tablet] Escitalopram Oxalate [Lexapro 10 15 mg PO DAILY 12/29/16 MG] diphenhydrAMINE [Benadryl 25 MG 50 mg PO HS PRN #60 cap 01/02/17 (*)] MDM/Departure - MDM ED Course/Re-evaluation: This patient is complaining of acute anxiety, has been given a dose of oral Ativan. Is noted to be feeling improvement subsequently. Denies suicidal or homicidal ideation. Will hold on benzodiazepine prescription given his history of intentional clonidine overdose. I have explained this to him and he feels comfortable with this plan. Usual and customary discharge precautions instructions provided. Care of patient under supervision of secondary supervising physician Dr Constantino . - Depart Disposition: Home, Routine, Self-Care Clinical Impression: Anxiety Condition: Good Instructions: Anxiety (ED) Additional Instructions: Return to the ER if you develop worsening anxiety, if you develop thoughts of hurting yourself or others or any other symptoms that concern you Referrals: [facility] [Other] - 2-3 days, call for appt.
== END 2017-04-27 12:00 | disposition home or self-care (01) ==
DX: F41.9 Anxiety disorder, unspecified (principal); Z87.891 Personal history of nicotine dependence

== ENCOUNTER 2017-11-11 16:54 | Emergency (ER) | payer MEDICAID ==
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
[2017-11-11 18:28] VITALS: BP 123/91
== END 2017-11-11 18:25 | disposition home or self-care (01) ==
DX: S80.811A Abrasion, right lower leg, initial encounter (principal); F19.10 Other psychoactive substance abuse, uncomplicated; B20 Human immunodeficiency virus [HIV] disease; I10 Essential (primary) hypertension; F17.200 Nicotine dependence, unspecified, uncomplicated; Y04.8XXA Assault by other bodily force, initial encounter; Y92.830 Public park as the place of occurrence of the external cause; Y99.8 Other external cause status; Y93.89 Activity, other specified